=== PATIENT | male | born 1990 | race Caucasian/White ===

== ENCOUNTER 2016-07-24 22:58 | Emergency (ER) | payer OTHER ==
[~2016-07-24] VITALS: Ht 188 cm; Wt 80.5 kg
[~2016-07-24 22:58] MED LIST: AMOXICILLIN875 MG PO; CITALOPRAM HBR10 MG PO; DICYCLOMINE HCL20 MG PO; ENDOCET 5-3251 EACH; HYDROCODON-ACE1 EAC7 PO; IMIPRAMINE HCL25 MG PO; METRONIDAZOLE500 MG PO; MOTRIN600 MG PO; NAPROSYN500 MG PO; PANTOPRAZOLE SO40 MG PO; PERCOCET 5/31 TABLET PO; PHENERGAN25 MG PR; PROMETHAZINE HC25 M1 PO; TAMIFLU75 MG PO; TOPIRAMATE25 MG; TRAMADOL HCL50 MG PO; TYLENOL650 MG PO; VICODIN 5-3001 EACH PO
[2016-07-25] MEDS ORDERED: ZOFRAN ODT4 MG PO (00:32)
[2016-07-25 00:40] VITALS: BP 134/79
== END 2016-07-25 00:41 | disposition home or self-care (01) ==
LOC: EME 22:58 → RME 22:58
DX: J11.2 Influenza due to unidentified influenza virus with gastrointestinal manifestations (principal); R11.2 Nausea with vomiting, unspecified
CPT/HCPCS: 99281; 99283

== ENCOUNTER 2016-10-28 16:38 | Emergency (ER) | payer OTHER ==
[~2016-10-28] VITALS: Ht 188 cm; Wt 80.4 kg
[~2016-10-28 16:38] MED LIST changes: +ZOFRAN ODT4 MG PO
[2016-10-28 16:58] VITALS: BP 131/75
[2016-10-28] MEDS ORDERED: FIORICET,ESG1 TABLET PO (19:23)
== END 2016-10-28 19:52 | disposition home or self-care (01) ==
LOC: EME 16:38
DX: M79.5 Residual foreign body in soft tissue (principal); R51 Headache
CPT/HCPCS: 70260; 99281; 99284

== ENCOUNTER 2017-03-01 08:52 | Emergency (ER) | payer OTHER ==
[~2017-03-01] VITALS: Ht 188 cm; Wt 79.7 kg
[~2017-03-01 08:52] MED LIST changes: +FIORICET,ESG1 TABLET PO
[2017-03-01] MEDS ORDERED: ULTRAM50 MG PO (10:33)
[2017-03-01] MEDS ORDERED: PREDNISONE10 MG PO (10:33)
[2017-03-01] MEDS ORDERED: FLEXERIL10 MG PO (10:33)
[2017-03-01] MEDS ORDERED: VIVITROL380 MG/3.4 IM (10:54)
[2017-03-01 11:20] VITALS: BP 137/89
== END 2017-03-01 11:21 | disposition home or self-care (01) ==
LOC: EME 08:52
DX: M54.5 Low back pain (principal)
CPT/HCPCS: 99281; 99284; J1100

== ENCOUNTER 2017-12-31 10:26 | Emergency (ER) | payer OTHER ==
[~2017-12-31] VITALS: Ht 190.5 cm; Wt 80.4 kg
[~2017-12-31 10:26] MED LIST changes: +FLEXERIL10 MG PO; +PREDNISONE10 MG PO; +ULTRAM50 MG PO; +VIVITROL380 MG/3.4 IM
[2017-12-31 10:47] LABS: APPEARANCE CLEAR ((CLEAR)); BILIRUBIN NEGATIVE; BLOOD SMALL; COLOR YELLOW ((YELLOW)); GLUCOSE (STRIP) NEGATIVE; KETONES NEGATIVE; LEUKOCYTES NEGATIVE; NITRITE NEGATIVE; PROTEIN (STRIP) NEGATIVE; SPECIFIC GRAVITY 1.011 (1.000-1.030); UROBILINOGEN 0.2 MG/DL (0.2-1.0)
[2017-12-31 10:54] LABS: BACTERIA NONE SEEN /HPF; EPITHELIAL CELLS NONE SEEN /HPF; MUCUS TRACE /LPF; UCUL ADDED? NO; WHITE BLOOD CELLS 0-5 /HPF (0-5)
[2017-12-31 11:21] LABS: HEMATOCRIT 40.7 % (38.0-50.0); HEMOGLOBIN 14.3 G/DL (12.5-16.6); MCH 29.1 PG (29.0-34.0); MCHC 35.1 G/DL (30.0-36.0); MCV 82.9 FL (86-99); PLATELET COUNT 205 K/uL (156-360); RBC DIS.WIDTH-CV 12.6 % (11.8-14.6); RED BLOOD COUNT 4.91 M/uL (4.00-5.50); WHITE BLOOD COUNT 5.3 K/uL (4.1-10.2)
[2017-12-31 11:34] LABS: CHLORIDE 107 mEq/L (99-109); SODIUM 139 mEq/L (136-147)
[2017-12-31 11:35] LABS: GLUCOSE 87 mg/dL (70-99)
[2017-12-31 11:39] LABS: GFR ESTIMATE (CALCULATED) > 59 mL/min/ (58.99-99999)
[2017-12-31 11:40] LABS: UREA NITROGEN (BUN) 19 mg/dL (9-23)
[2017-12-31 12:32] LABS: ALBUMIN 4.3 g/dL (3.2-4.8)
[2017-12-31 12:35] LABS: TOTAL PROTEIN 6.7 g/dL (6.4-8.3)
[2017-12-31 12:37] LABS: TOTAL BILIRUBIN 1.1 mg/dL (0.0-1.0)
[2017-12-31 12:38] LABS: ALKALINE PHOSPHATASE 58 IU/L (3-129)
[2017-12-31 12:40] LABS: AST (GOT) 27 IU/L (2-34); DIRECT BILIRUBIN 0.4 mg/dL (0.0-0.3)
[2017-12-31 12:41] LABS: ALT (GPT) 21 IU/L (3-49)
[2017-12-31] MEDS ORDERED: NORCO 5/3251 TABLET PO (13:46)
[2017-12-31] MEDS ORDERED: ZOFRAN ODT4 MG PO (13:46)
[2017-12-31] MEDS ORDERED: FLOMAX0.4 MG PO (13:46)
[2017-12-31 14:10] VITALS: BP 122/72
== END 2017-12-31 14:11 | disposition home or self-care (01) ==
LOC: EME 10:26
DX: N13.2 Hydronephrosis with renal and ureteral calculous obstruction (principal); K59.00 Constipation, unspecified; Z87.442 Personal history of urinary calculi
CPT/HCPCS: 74176; 80048; 80076; 81003; 85027; 99281; 99285; J1885; J2270; J2405; J7030